=== PATIENT | male | born 1950 | race Caucasian/White ===

== ENCOUNTER 2023-11-17 13:13 | Outpatient (RCR) | payer MEDICARE | END 2023-11-22 | LOC: RESP 13:13 | PROVIDERS: ATTEND Internal Medicine | DX: J44.9 Chronic obstructive pulmonary disease, unspecified (principal) | CPT/HCPCS: 94799 ==

== ENCOUNTER → 2024-03-25 | Day surgery (SDC) | payer MEDICARE ==
[~2024-03-25] MED LIST: ACETAMINOPHEN 1000 MG/100 ML 100 ML IV ONE; ACETAMINOPHEN-COD #3 PO; ASPIRIN81 MG PO; ATORVASTATIN CA20 MG PO; BACTRIM DS TAB1 EACH PO; BUPIVACAINE 0.25% 30ML SDV ONE; CEFDINIR300 MG PO; DEXAMETHASONE SOD PHOS INJ 4 MG/ML SDV ONE; DILTIAZEM HCL30 MG PO; ELIQUIS5 MG PO; EPHEDRINE SULFATE INJ 50 MG/ML VIAL ONE; ETOMIDATE 2 MG/ML 10 ML INJ IV ONE; FENTANYL CITRATE/PF 100MCG/2 ML INJ ONE; FINASTERIDE5 MG PO; FLOMAX0.4 MG PO; FOLIC ACID0.8 MG PO; GLIMEPIRIDE2 MG PO; HYDROCHLOROTHIA25 MG PO; LIDOCAINE HCL 2% LOCAL INJ 5 ML SDV VIAL INJ ONE; METFORMIN HCL500 MG PO; METOPROLOL SUCC50 MG PO; NEOSTIGMINE 1 MG/ML 10ML VIAL ONE; ONDANSETRON HCL INJ 2MG/ML 2ML 2 MG/ML VIAL ONE; PHENAZOPYRIDIN100 MG PO; PHENYLEPHRINE HCL 1% 10 MG/ML VIAL ONE; PROPOFOL IV EMULSION 10 MG/ML 20 ML VIAL ONE; SEVOFLURANE INHAL SOLN 250 ML PEN BTL ONE; TRELEGY ELLIPT1 EACH INH; ZESTRIL40 MG PO
[2024-03-25 06:30] LABS: BASOPHILS % 0.2 % (0.0-1.0); EOSINOPHILS # (AUTO) 0.4 (0.0-0.4); EOSINOPHILS % 3.8 % (0.0-6.0); HEMATOCRIT 36.9 % (38.2-49.6); HEMOGLOBIN 11.7 g/dL (14.0-18.0); LYMPHOCYTES # (AUTO) 1.8 (1.0-3.2); LYMPHOCYTES % 19.3 % (18.0-39.1); MEAN CORPUSCULAR HEMOGLOBIN 32.1 pg (28-32); MEAN CORPUSCULAR HGB CONC 31.7 g/dL (31-35); MEAN CORPUSCULAR VOLUME 101.4 fL (81-99); MONOCYTES # (AUTO) 0.9 (0.2-0.8); NEUTROPHILS # (AUTO) 6.4 (2.1-6.9); NEUTROPHILS % 67.4 % (38.7-80.0); PLATELET COUNT 182 x10e3/uL (140-360); RED BLOOD COUNT 3.64 x10e6/uL (4.3-5.7); RED CELL DISTRIBUTION WIDTH 15.4 % (11.7-14.4); WHITE BLOOD COUNT 9.55 x10e3/uL (4.8-10.8)
[2024-03-25] MEDS: LACTATED RINGER'S 1,000 ML ONE (07:43)
[2024-03-25] MEDS: CEFTRIAXONE 1 GM VIAL ONE (07:44)
[2024-03-25 07:55] LABS: ANION GAP 15.2 mmol/L (8-16); CALCIUM 8.8 mg/dL (8.4-10.2); CREATININE, SERUM 1.36 mg/dL (0.72-1.25); POTASSIUM 4.2 mmol/L (3.5-5.1); URIC ACID 5.6 mg/dL (4.8-8.0)
[2024-03-25 08:57] VITALS: TEMP 98.4
[2024-03-25 09:55] VITALS: BP 144/76; PULSE 85; RESP 16; O2SAT 95
== END | disposition home or self-care (01) ==
LOC: OR 05:18
PROVIDERS: ATTEND Urology
DX: N20.0 Calculus of kidney (principal); N47.1 Phimosis; Z96.0 Presence of urogenital implants; N40.1 Benign prostatic hyperplasia with lower urinary tract symptoms; R39.14 Feeling of incomplete bladder emptying; R39.15 Urgency of urination; R39.12 Poor urinary stream; R35.0 Frequency of micturition; N21.0 Calculus in bladder; I10 Essential (primary) hypertension; I48.91 Unspecified atrial fibrillation; Z79.01 Long term (current) use of anticoagulants; E78.00 Pure hypercholesterolemia, unspecified; E11.9 Type 2 diabetes mellitus without complications; Z79.84 Long term (current) use of oral hypoglycemic drugs; J44.9 Chronic obstructive pulmonary disease, unspecified; I25.10 Atherosclerotic heart disease of native coronary artery without angina pectoris; N35.919 Unspecified urethral stricture, male, unspecified site; Z79.899 Other long term (current) drug therapy; Z79.82 Long term (current) use of aspirin; Z95.0 Presence of cardiac pacemaker
CPT/HCPCS: 36415; 50590; 54161; 74018; 80048; 82948; 84550; 85025; 88304; J0131; J0696; J1100; J2003; J2371; J2405; J2704; J2710; J3010; J7121